=== PATIENT | female | born 2000 | race Caucasian/White ===

== ENCOUNTER 2023-12-08 22:42 | Emergency (ER) | payer OTHER, SELFPAY ==
[2023-12-08 22:46] VITALS: BP 140/76; PULSE 98; RESP 17; TEMP 36.7; O2SAT 100
--- NOTE | 2023-12-08 23:47 | ED.LOWEXIN ---
HPI - Extremity Injury (Lower) General Chief Complaint: Extremity Injury, Lower <Giselle Jay PA-C - Last Filed: 12/09/23 00:50> Stated Complaint: L leg pain <ROSCOE Marshall Last Filed: 12/09/23 00:50> Time Seen by Provider: 12/08/23 23:42 <ROSCOE Marshall Last Filed: 12/09/23 00:50> History of Present Illness HPI Narrative: 23-year-old female presents to emergency department for left calf pain for 6 days. Patient states she began having calf pain while a [address] trip 6 days ago. She states she did stop every few hours to get up and walk around. She describes the pain is a cramping sensation that is worse when she walks. States she has never had any pain like this before. She is on estrogen containing control. She denies history of DVT. Denies chest pain or shortness of breath, palpitations or lightheadedness. Denies swelling. <Giselle Jay PA-C - Last Filed: 12/09/23 00:50> Related Data Allergies/Adverse Reactions: Allergies Allergy/AdvReac Type Severity Reaction Status Date / Time No Known Allergies Allergy Verified 12/08/23 22:43 <ROSCOE Marshall Last Filed: 12/09/23 00:50> Review of Systems Review of Systems: All systems reviewed & are unremarkable except as noted in HPI and below <Giselle Jay PA-C - Last Filed: 12/09/23 00:50> Exam Narrative: GENERAL: Well-appearing, well-nourished, and in no acute distress. HEAD: Normocephalic, atraumatic. EYES: EOMI. ENT: Nares clear, no rhinorrhea or epistaxis. Mucous membranes moist. NECK: Supple. CHEST: Clear to auscultation. No respiratory distress. HEART: Regular rate and rhythm. No murmur heard. Normal peripheral pulses. EXTREMITIES: LLE: Tenderness to the calf, positive Sweetie's sign. minimal edema. Dp pulse 2+. Sensation intact SKIN: Warm, dry, no rash. NEURO: No focal deficits. Alert and oriented x3 <Giselle Jay PA-C - Last Filed: 12/09/23 00:50> Course QUARRY EQUIPMENT OPERATOR/PA Physician Supervision For this patient encounter, I reviewed the QUARRY EQUIPMENT OPERATOR or PA documentation, treatment plan, and medical decision making and I had [id number] time with this patient. I performed all aspects of the MDM as documented. <Uriel Rice DO - Last Filed: 12/09/23 04:20> Vital Signs Vital signs: Vital Signs Temperature 98.0 F 12/08/23 22:46 Pulse Rate 98 12/08/23 22:46 Respiratory Rate 17 12/08/23 22:46 Blood Pressure 140/76 12/08/23 22:46 Pulse Oximetry 100 12/08/23 22:46 Oxygen Delivery Room Air 12/08/23 22:46 Temperature 98.0 F 12/09/23 00:16 Pulse Rate 88 12/09/23 01:18 Respiratory Rate 17 12/09/23 01:18 Blood Pressure 127/68 12/09/23 01:18 Pulse Oximetry 100 12/09/23 01:18 Oxygen Delivery Room Air 12/09/23 00:16 <Giselle Jay PA-C - Last Filed: 12/09/23 00:50> Vital Signs Temperature 98.0 F 12/08/23 22:46 Pulse Rate 98 12/08/23 22:46 Respiratory Rate 17 12/08/23 22:46 Blood Pressure 140/76 12/08/23 22:46 Pulse Oximetry 100 12/08/23 22:46 Oxygen Delivery Room Air 12/08/23 22:46 Temperature 98.0 F 12/09/23 00:16 Pulse Rate 88 12/09/23 01:18 Respiratory Rate 17 12/09/23 01:18 Blood Pressure 127/68 12/09/23 01:18 Pulse Oximetry 100 12/09/23 01:18 Oxygen Delivery Room Air 12/09/23 00:16 <DO Martha Tyler Last Filed: 12/09/23 04:20> MDM - Extremity Injury (Lower) MDM Narrative Medical decision making narrative: 23-year-old female presents emergency department for left calf pain for 6 days after she had a 9 hour car ride at the onset of her symptoms. She is on estrogen containing control. Vitals are stable. Exam significant for minimal edema to the left lower calf, pain to the calf, positive Homans sign. she denies any symptoms of PE including chest pain, shortness of breath, palpitations, lightheadedness. CBC is unremarkable. Chemistries ar
[2023-12-09 00:15] LABS: Basophils Percent Auto 0.4 % (0.2-1.2); Eosinophils Absolute Auto 0.2 K/mm3 (0-0.3); Eosinophils Percent Auto 1.9 % (0-4.4); Hematocrit 40.5 % (37.0-47.0); Hemoglobin 13.4 g/dL (12.0-15.0); Immature Granulocyte Absolute 0.03 K/mm3 (0.00-0.031); Immature Granulocyte Percent A 0.4 % (0-0.5); Lymphocytes Absolute Auto 2.75 K/mm3 (0.9-3.2); Lymphocytes Percent Auto 34.4 % (18.3-44.2); Mean Corpuscular HGB Conc 33.1 g/dl (32-36); Mean Corpuscular Hemoglobin 28.7 pg (26-34); Mean Corpuscular Volume 86.7 fl (80-100); Mean Platelet Volume 9.7 fl (7.4-10.4); Monocytes Absolute Auto 0.6 K/mm3 (0.1-0.6); Monocytes Percent Auto 7.1 % (2.6-8.5); Neutrophils Absolute Auto 4.5 K/mm3 (1.3-6.7); Neutrophils Percent Auto 55.8 % (45.5-73.1); Platelet Count Result 316 k/mm3 (150-375); Red Blood Count 4.67 M/mm3 (4.2-5.4); Red Cell Distribution Width 13.3 % (11.5-14.5)
[2023-12-09 00:16] VITALS: BP 124/65; PULSE 87; RESP 17; TEMP 36.7; O2SAT 100
[2023-12-09 00:25] LABS: Anion Gap 12 mmol/L (4-12); Blood Urea Nitrogen 14 mg/dL (7-17); Calcium 9.8 mg/dL (8.4-10.2); Carbon Dioxide 25 mmol/L (22-30); Chloride 101 mmol/L (98-107); Estimated CRCL calculation 81 ml/min; Estimated Glomerular Filt Rate > 60; Glucose 92 mg/dL (65-110); Sodium 138 mmol/L (137-145)
[2023-12-09 00:27] LABS: INR 0.9; Prothrombin Time 12.3 Seconds (11.1-14.7)
[2023-12-09 00:28] LABS: Partial Thromboplastin Time 23.6 Seconds (22.3-36.8)
[2023-12-09 00:33] LABS: D Dimer 1.82 ug/mL (<0.48)
[2023-12-09 00:55] LABS: SPREG INTERNAL CONTROL Positive; Serum Qual hCG Negative
[2023-12-09] MEDS: ENOXAPARIN 60 MG/0.6 ML SYRINGE SUB-Q (01:10)
[2023-12-09 01:18] VITALS: BP 127/68; PULSE 88; RESP 17; O2SAT 100
== END 2023-12-09 01:19 | disposition home or self-care (01) ==
PROVIDERS: Emergency Provider Physician Assistant
DX: M79.662 Pain in left lower leg (principal); R79.89 Other specified abnormal findings of blood chemistry; Z23 Encounter for immunization
CPT/HCPCS: 36415; 80048; 84703; 85025; 85380; 85610; 85730; 90471; 93971; 99283; A9270; J1650

== ENCOUNTER 2023-12-09 07:14 | Outpatient (CLI) | payer OTHER, SELFPAY ==
--- NOTE | ~2023-12-09 | US_ITS ---
EXAMINATION: US venous doppler [facility] DATE: 12/09/2023 07:58 INDICATION: Left lower limb pain. TECHNIQUE: Grayscale ultrasound images without and with compression and Doppler ultrasound images of the left lower extremity veins were obtained. COMPARISON: None. FINDINGS: The visualized portions of left common femoral vein, profunda (deep) femoral vein, femoral vein, killian nabil veins, posterior tibial veins, and greater saphenous vein outflow are patent. There is thrombus in left popliteal and gastrocnemius veins. IMPRESSION: 1. Deep vein thrombosis involving left popliteal and gastrocnemius veins. Reviewed, dictated and finalized at location A.
== END 2023-12-09 07:15 | disposition home or self-care (01) ==
PROVIDERS: Visit Provider Physician Assistant
DX: I82.432 Acute embolism and thrombosis of left popliteal vein (principal); I82.462 Acute embolism and thrombosis of left calf muscular vein
CPT/HCPCS: 93971

== ENCOUNTER 2023-12-09 08:20 | Emergency (ER) | payer OTHER, SELFPAY ==
[2023-12-09 08:24] VITALS: BP 133/74; PULSE 100; RESP 12; TEMP 36.9; O2SAT 100
--- NOTE | 2023-12-09 09:03 | ED.EXTPRO ---
HPI - Extremity Problem General Chief complaint: Extremity Problem,Nontraumatic Stated complaint: DVT Time Seen by Provider: 12/09/23 08:55 Source: patient and other (Partner) Mode of arrival: ambulatory Limitations: no limitations History of Present Illness HPI Narrative: Patient presents from Radiology where she had a ultrasound showing DVT earlier this morning/overnight (12/08/23). This outpatient study had been ordered after patient was seen in the emergency department overnight. Patient had been given 1 dose of Lovenox. Patient is control (Sprintec) but also recently had a long car trip lasting 9 hours on which is when she started developing what she was a cramp in her left leg. Denies any chest pain or shortness of breath. She sees her Gear Room Keeper Aparna in [place] for an appointment coming up within the next week to discuss her control. Does not have a PCP. Related Data Allergies Allergy/AdvReac Type Severity Reaction Status Date / Time No Known Allergies Allergy Verified 12/09/23 08:40 Exam Narrative: GENERAL: Well-appearing, well-nourished, and in no acute distress. HEAD: Normocephalic, atraumatic. EYES: Non injected, non icteric ENT: Nares clear, no rhinorrhea or epistaxis. NECK: Supple. CHEST: Speaking in full sentences. No respiratory distress. HEART: Regular rate and rhythm. . ABDOMEN: Soft, nondistended. EXTREMITIES: Normal range of motion. No edema. No edema or palpable swelling. Mild tenderness to palpation of the left calf. No phlegmasia cerulea dolens SKIN: Warm, dry, no rash. NEURO: No focal deficits. Alert and oriented x3. PSYCH: Normal mood and affect. Course Vital Signs Vital signs: Vital Signs Temperature 98.4 F 12/09/23 08:24 Pulse Rate 100 12/09/23 08:24 Respiratory Rate 12 12/09/23 08:24 Blood Pressure 133/74 12/09/23 08:24 Pulse Oximetry 100 12/09/23 08:24 Oxygen Delivery Room Air 12/09/23 08:24 Temperature 98.4 F 12/09/23 08:24 Pulse Rate 89 12/09/23 10:00 Respiratory Rate 20 12/09/23 10:00 Blood Pressure 127/88 12/09/23 10:00 Pulse Oximetry 95 12/09/23 10:00 Oxygen Delivery Room Air 12/09/23 08:24 MDM - Extremity (Nontraumatic) MDM Narrative Medical decision making narrative: Patient presents from outpatient radiology where she had ultrasound study this morning demonstrating DVT. Patient been seen in the emergency department overnight labs obtained. She had been given a dose of Lovenox. In the emergency department they are afebrile with vital signs within normal limits. Patient is on control but also recently underwent a long car ride which is when she developed pain in her left lower extremity which she felt might be a cramp initially. Therefore, this does appear to be provoked. She has appointment with her Ob Gyne in the next week to discuss control. Patient prescribed 30 day course of rivaroxaban and provided a coupon as well as given instructions about possible alternative means if this is cost prohibitive. Patient given referral to primary care physician she does not currently have 1 and will require subsequent refill of this medication. We discussed that acetaminophen/Tylenol safe to take but she is informed that she is to avoid NSAIDs. Patient is given strict emergency department return precautions verifies understanding. Work note provided. Discharged home stable condition. Lab Data Lab results narrative: Labs obtained 12/08/23 Imaging Data Radiologist's impression: IMPRESSION: 1. Deep vein thrombosis involving left popliteal and gastrocnemius veins. Discharge Plan Discharge Clinical Impression: Acute deep vein thrombosis of left popliteal vein Patient Disposition: Home, Self-Care Condition: Stable Instructions: Antibiotic Form, Deep Vein Thrombosis (DC) Additional Instructions: As we discussed, you have a deep vein thrombosis in her left popliteal and gastrocnemius veins. You ar
[2023-12-09] MEDS: HYDROcodone/acetaminophen (*CRX) 5-325 MG TABLET 1 TAB PO (09:43)
[2023-12-09 10:00] VITALS: BP 127/88; PULSE 89; RESP 20; O2SAT 95
== END 2023-12-09 10:00 | disposition home or self-care (01) ==
PROVIDERS: Emergency Provider Student in an Organized Health Care Education/Training Program
DX: I82.432 Acute embolism and thrombosis of left popliteal vein (principal); Z79.3 Long term (current) use of hormonal contraceptives
CPT/HCPCS: 99283; A9270

== ENCOUNTER 2025-03-27 17:07 | Outpatient (CLI) | payer OTHER, SELFPAY ==
[2025-03-27 18:26] LABS: Beta HCG Quantitative < 2.39 mIU/ML
== END 2025-03-27 17:08 | disposition home or self-care (01) ==
LOC: ANHLAB 17:08
PROVIDERS: Visit Provider Obstetrics & Gynecology
DX: N92.6 Irregular menstruation, unspecified (principal)
CPT/HCPCS: 36415; 84702